=== PATIENT | male | born 1975 | race Caucasian/White ===

== ENCOUNTER 2024-02-12 00:15 | Emergency (ER) | payer SELFPAY ==
[2024-02-12] MEDS ORDERED: IBUPROFEN 400 MG TAB ONE (00:20)
--- NOTE | 2024-02-12 01:44 | ER ---
Nurse's Notes [facility] Name: Deep Garcia Age: 48 yrs Sex: Male : 1975 Arrival Date: 02/12/2024 Time: 00:15 Bed 4 Private MD: Diagnosis: Pain in left knee;Pain in left ankle and joints of left foot Presentation: 02/11 00:17 Chief complaint: EMS states: left knee pain and swelling. hx of acl surgery. rv Coronavirus screen: At this time, the client does not indicate any symptoms associated with coronavirus-19. Ebola Screen: No symptoms or risks identified at this time. Initial Sepsis Screen: Does the patient meet any 2 criteria? No. Patient's initial sepsis screen is negative. Does the patient have a suspected source of infection? No. Patient's initial sepsis screen is negative. Risk Assessment: Do you want to hurt yourself or someone else? Patient reports no desire to harm self or others. Onset of symptoms was February 12, 2024. 00:17 Method Of Arrival: EMS: [facility] rv 00:17 Acuity: KAI 4 rv Triage Assessment: 00:18 General: Appears uncomfortable, Behavior is calm, cooperative. Pain: Complains of pain rv in left knee and anterior aspect of left ankle. Neuro: Level of Consciousness is awake, alert, obeys commands, Oriented to person, place, time, situation. Cardiovascular: Capillary refill < 3 seconds Patient's skin is warm and dry. Respiratory: Airway is patent Respiratory effort is even, unlabored. GI: No signs and/or symptoms were reported involving the gastrointestinal system. : No signs and/or symptoms were reported regarding the genitourinary system. Musculoskeletal: Circulation, motion, and sensation intact. Range of motion: limited in left knee Swelling present in left knee. Historical: - Allergies: 00:18 No Known Allergies; rv - Home Meds: 00:18 None [Active]; rv - PMHx: 00:18 None; rv - PSHx: 00:18 acl surgery; Appendectomy; rv - Immunization history:: Adult Immunizations up to date. - Infectious Disease History:: Denies. - Social history:: Smoking status: unknown. Screenin:21 [facility] ED Fall Risk Assessment (Adult) History of falling in the last 3 months, rv including since admission No falls in past 3 months (0 pts) Score/Fall Risk Level 0 - 2 = Low Risk Oriented to surroundings, Maintained a safe environment, Educated pt \T\ family on fall prevention, incl call for assistance when getting out of bed, Assessed \T\ reinforced patient's understanding of fall precautions. Abuse screen: Denies threats or abuse. Denies injuries from another. Nutritional screening: No deficits noted. Tuberculosis screening: No symptoms or risk factors identified. Assessment: 00:20 General: Appears in no apparent distress. uncomfortable, Behavior is calm, cooperative. tm6 Pain: Complains of pain in left leg Pain currently is 8 out of 10 on a pain scale. Neuro: Level of Consciousness is awake, alert, obeys commands, Oriented to person, place, time, situation. Cardiovascular: No deficits noted. Patient's skin is warm and dry. Respiratory: Airway is patent Respiratory effort is even, unlabored, Respiratory pattern is regular, symmetrical. GI: Abdomen is flat, non-distended. GI: No signs and/or symptoms were reported involving the gastrointestinal system. : No signs and/or symptoms were reported regarding the genitourinary system. EENT: No signs and/or symptoms were reported regarding the EENT system. Derm: No signs and/or symptoms reported regarding the dermatologic system. Musculoskeletal: Swelling present in left knee Reports pain in left leg. 01:15 Reassessment: Patient appears in no apparent distress at this time. Patient is alert, tm6 oriented x 3, equal unlabored respirations, skin warm/dry/pink. Vital Signs: 00:17 BP 109 / 74; Pulse 66; Resp 16; Temp 98; Pulse Ox 100% ; Weight 83.91 kg; Height 6 ft. rv 0 in. ; 01:13 BP 100 / 60; Pulse 61; Pulse Ox 98% on R/A; tm6 00:17 Body Mass Index 25.09 (83.91 kg, 182.88 cm) rv ED Course: 00:17 Patient arrived in ED. rv 00:17 Judson Alcantara PA is PHCP. cp 00:17 Judson Dejesus MD is Attending Physician. cp 00:18 Triage completed. rv 00:18 Arm band placed on right wrist. rv 00:18 Provided Education on: plan of care. tm6 00:18 Air stirrup applied to left ankle. Knee immobilizer applied on left knee. tm6 00:21 Patient has correct armband on for positive identification. Client placed on continuous rv cardiac and pulse oximetry monitoring. NIBP monitoring applied. 00:21 No provider procedures requiring assistance completed. rv 00:22 Shiv Blue, RN is Primary Nurse. rv 00:39 XRAY Knee LEFT 3 view In Process Unspecified. EDMS 00:39 XRAY Ankle LEFT 3 view In Process Unspecified. EDMS 01:43 Damian Valdovinos MD is Referral Physician. cp 01:53 Patient did not have IV access during this emergency room visit. rv Administered Medications: 00:25 Drug: Ibuprofen PO 800 mg PO once Route: PO; tm6 Medication: 00:21 VIS not applicable for this client. rv Outcome: 01:44 Discharge ordered by . cp 01:53 Discharged to home ambulatory, rv 01:53 Condition: good 01:53 Discharge instructions given to patient, Instructed on discharge instructions, follow up and referral plans. Demonstrated understanding of instructions, follow-up care, medications, Prescriptions given X 1, 01:53 Patient left the ED. rv Signatures: Dispatcher [employer] ED[place] Judson Alcantara PA PA cp Shiv Blue, RN RN rv Jerrica Kimble RN RN tm6
--- NOTE | 2024-02-12 01:44 | EDPHYS ---
Physician Documentation [facility] Name: Deep Garcia Age: 48 yrs Sex: Male : 1975 Arrival Date: 02/12/2024 Time: 00:15 Bed 4 Private MD: AYLIN Physician Judson Dejesus Historical: - Allergies: 02/11 00:18 No Known Allergies; rv - Home Meds: 00:18 None [Active]; rv - PMHx: 00:18 None; rv - PSHx: 00:18 acl surgery; Appendectomy; rv - Immunization history:: Adult Immunizations up to date. - Infectious Disease History:: Denies. - Social history:: Smoking status: unknown. Vital Signs: 00:17 BP 109 / 74; Pulse 66; Resp 16; Temp 98; Pulse Ox 100% ; Weight 83.91 kg; Height 6 ft. rv 0 in. ; 01:13 BP 100 / 60; Pulse 61; Pulse Ox 98% on R/A; tm6 00:17 Body Mass Index 25.09 (83.91 kg, 182.88 cm) rv MDM: 00:17 Patient medically screened. cp 02/11 00:18 Order name: XRAY Knee LEFT 3 view cp 02/11 00:18 Order name: XRAY Ankle LEFT 3 view cp 02/11 00:18 Order name: Ice pack; Complete Time: 00:25 cp 02/11 01:18 Order name: Ankle Splint: Aircast; Complete Time: 01:36 cp 02/11 01:18 Order name: Knee Immobilizer; Complete Time: 01:36 cp Administered Medications: 00:25 Drug: Ibuprofen PO 800 mg PO once Route: PO; tm6 Disposition Summary: 02/12/24 01:44 Discharge Ordered Notes: Location: Home cp Problem: new cp Symptoms: have improved cp Condition: Stable cp Diagnosis - Pain in left knee cp - Pain in left ankle and joints of left foot cp Followup: cp - With: Damian Valdovinos MD - When: 2 - 3 days - Reason: Recheck today's complaints Discharge Instructions: - Discharge Summary Sheet cp - Elastic Bandage and RICE Therapy cp - How to Use a Knee Immobilizer cp - Acute Knee Pain, Adult cp - Ankle Pain cp Forms: - Medication Reconciliation Form cp - Antibiotic Education cp - Prescription Opioid Use cp - Patient Portal Instructions cp - Leadership Thank You Letter cp Prescriptions: - Naprosyn 500 mg Oral tablet - take 1 tablet ORAL route 2 times per day take with food; 20 tablet; Refills: 0, cp Product Selection Permitted Signatures: Dispatcher [employer] Judson Varghese PA PA cp Vicente, Ronaldo RN RN rv Jerrica Kimble RN RN tm6
[2024-02-12 02:28] VITALS: BP 100/60; TEMP 98; O2SAT 98
--- NOTE | 2024-02-12 12:31 | RAD REPORT ---
EXAM DESCRIPTION: XR KNEE 3 VIEWS LEFT CLINICAL HISTORY: Fall;Pain COMPARISON: None. TECHNIQUE: XR KNEE 3 VIEWS LEFT 02/12/2024 12:18 AM CDT FINDINGS: There is no fracture. Joint spaces are preserved. There is medial soft tissue swelling. Prior ACL repair was performed. IMPRESSION: No acute osseous findings. Electronically signed by: Raman Velasco MD 02/12/2024 01:48 AM CDT Due to temporary technical issues with the PACS/Fluency reporting system, reports are being signed by the in house radiologist without review as a courtesy to ensure prompt reporting. The interpreting r adiologist is fully responsible for the content of the report.
--- NOTE | 2024-02-12 12:36 | RAD REPORT ---
EXAM DESCRIPTION: XR ANKLE 3 OR MORE VIEWS LEFT CLINICAL HISTORY: PAIN COMPARISON: None. TECHNIQUE: XR ANKLE 3 OR MORE VIEWS LEFT 02/12/2024 12:18 AM CDT FINDINGS: There is no fracture. Joint spaces are preserved. Soft tissues are unremarkable. IMPRESSION: No acute osseous findings. Electronically signed by: Raman Velasco MD 02/12/2024 01:49 AM CDT Due to temporary technical issues with the PACS/Fluency reporting system, reports are being signed by the in house radiologist without review as a courtesy to ensure prompt reporting. The interpreting r adiologist is fully responsible for the content of the report.
== END 2024-02-12 01:53 | disposition home or self-care (01) ==
LOC: ER 00:15
DX: M25.562 Pain in left knee (principal); M25.572 Pain in left ankle and joints of left foot